=== PATIENT | female | born 2005 | race Caucasian/White ===

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

== ENCOUNTER 2023-05-16 14:01 | Emergency (ER) | payer BC, MEDICAID ==
[~2023-05-16] VITALS: Ht 165.1 cm; Wt 59.1 kg
[~2023-05-16 14:01] MED LIST: ADDE10CA3 PO; BENA25CA4 PO; LEXA1TAB2 PO
[2023-05-16 14:02] VITALS: TEMP 98.2
[2023-05-16] MEDS ORDERED: MIRT1TAB (14:23)
[2023-05-16] MEDS ORDERED: VENL75CA47 (14:23)
[2023-05-16] MEDS ORDERED: LEVOTAB10 (14:23)
[2023-05-16] MEDS ORDERED: TOPA1TAB PO (14:23)
[2023-05-16] MEDS ORDERED: CYCL-707 PO (17:22)
[2023-05-16 17:33] VITALS: BP 120/69; O2SAT 99
== END 2023-05-16 17:35 | disposition home or self-care (01) ==
LOC: M ED 14:01
DX: S46.812A Strain of other muscles, fascia and tendons at shoulder and upper arm level, left arm, initial encounter (principal); J45.909 Unspecified asthma, uncomplicated; F41.9 Anxiety disorder, unspecified; F32.A Depression, unspecified; R51.9 Headache, unspecified; F12.10 Cannabis abuse, uncomplicated; F10.10 Alcohol abuse, uncomplicated; Z91.010 Allergy to peanuts; Z79.811 Long term (current) use of aromatase inhibitors; Z79.899 Other long term (current) drug therapy; Y92.9 Unspecified place or not applicable; Y93.9 Activity, unspecified; Y99.9 Unspecified external cause status

== ENCOUNTER → 2023-06-01 | Outpatient (CLI) | payer BC, MEDICAID ==
[~2023-06-01] MED LIST changes: +CYCL-707 PO; +LEVOTAB10; +MIRT1TAB; +TOPA1TAB PO; +VENL75CA47
== END ==
LOC: M SOG 07:55
PROVIDERS: ATTEND Physician Assistant
DX: M25.511 Pain in right shoulder (principal); M25.512 Pain in left shoulder

== ENCOUNTER 2024-01-18 15:50 | Emergency (ER) | payer BC, MEDICAID, OTHER ==
[~2024-01-18] VITALS: Ht 165.1 cm; Wt 57.1 kg
[2024-01-18 15:53] VITALS: TEMP 97.9
[2024-01-18] MEDS ORDERED: VIIB10TA PO (16:01)
[2024-01-18 18:37] LABS: BASO # 0.1 10^3/uL (0.0-0.2); BASO % 0.8 % (0.0-1.0); EOS # 0.8 10^3/uL (0.0-0.5); EOS % 11.4 % (0.0-3.0); HEMATOCRIT 42.1 % (36.0-47.0); HEMOGLOBIN 14.3 g/dl (12.0-15.5); LYMPH # 2.2 10^3/uL (1.5-5.0); LYMPH % 29.1 % (24.0-44.0); MEAN CORPUSCULAR HEMOGLOBIN 30.2 pg (27.0-33.0); MEAN CORPUSCULAR VOLUME 88.8 fl (80.0-96.0); MONO # 0.6 10^3/uL (0.0-0.8); MONO % 8.3 % (2.0-8.0); NEUTROPHILS # 3.7 10^3/uL (1.5-8.5); NEUTROPHILS % 50.3 % (36.0-66.0); PLATELET COUNT, AUTOMATED 261 10^3/uL (150-450); RED BLOOD COUNT 4.74 10^6/uL (4.00-5.40); WHITE BLOOD COUNT 7.4 10^3/uL (4.0-10.0)
[2024-01-18 19:00] LABS: LIPASE 41 U/L (12-53)
[2024-01-18 19:01] LABS: AMYLASE 91 U/L (30-118)
[2024-01-18 19:06] LABS: ALKALINE PHOSPHATASE 56 U/L (46-116); ALT/SGPT 12 U/L (7.0-40); AST/SGOT < 8 U/L (<34); BILIRUBIN,DIRECT 0.2 MG/DL (<0.4); BILIRUBIN,TOTAL 0.6 MG/DL (0.3-1.2); BLOOD UREA NITROGEN 7 MG/DL (9-23); CALCIUM LEVEL 9.4 MG/DL (8.5-10.1); CARBON DIOXIDE LEVEL 24 MMOL/L (20-31); CHLORIDE LEVEL 111 MMOL/L (98-107); CREATININE FOR GFR 0.69 MG/DL (0.55-1.30); GLUCOSE, FASTING 112 MG/DL (60-100); POTASSIUM SERUM 3.9 MMOL/L (3.5-5.1); SODIUM LEVEL 139 MMOL/L (136-145); TOTAL PROTEIN 6.8 G/DL (5.7-8.2)
[2024-01-18 19:16] LABS: HCG, SERUM QUALITATIVE NEGATIVE (NEGATIVE)
[2024-01-18] MEDS: KETOROLAC 30 MG/ML 1ML VIAL IV ONE (19:24)
[2024-01-18 22:39] VITALS: BP 110/74; O2SAT 98
[2024-01-18] MEDS ORDERED: METH-1164 PO (23:54)
[2024-01-18] MEDS ORDERED: DICL75TA PO (23:54)
== END 2024-01-19 00:21 | disposition home or self-care (01) ==
LOC: M ED 15:50
DX: M54.50 Low back pain, unspecified (principal); M62.838 Other muscle spasm; J45.909 Unspecified asthma, uncomplicated; Z79.899 Other long term (current) drug therapy; Z91.018 Allergy to other foods
CPT/HCPCS: 70491; 74177; 80048; 80076; 81001; 82150; 83690; 84703; 85025; 96374; 99284; J1885

== ENCOUNTER → 2024-07-04 | Outpatient (CLI) | payer OTHER ==
[~2024-07-04] MED LIST changes: +DICL75TA PO; +METH-1164 PO; +VIIB10TA PO
[2024-07-04 14:04] LABS: BASO # 0.1 10^3/uL (0.0-0.2); BASO % 1.1 % (0.0-1.0); EOS % 15.1 % (0.0-3.0); HEMATOCRIT 43.3 % (36.0-47.0); HEMOGLOBIN 14.7 g/dl (12.0-15.5); LYMPH # 2.1 10^3/uL (1.5-5.0); LYMPH % 32.5 % (24.0-44.0); MEAN CORPUSCULAR HEMOGLOBIN 30.6 pg (27.0-33.0); MEAN CORPUSCULAR HGB CONC 33.9 g/dl (32.0-36.5); MONO # 0.5 10^3/uL (0.0-0.8); MONO % 7.6 % (2.0-8.0); NEUTROPHILS # 2.8 10^3/uL (1.5-8.5); NEUTROPHILS % 43.5 % (36.0-66.0); PLATELET COUNT, AUTOMATED 284 10^3/uL (150-450); RED BLOOD COUNT 4.81 10^6/uL (4.00-5.40); WHITE BLOOD COUNT 6.3 10^3/uL (4.0-10.0)
[2024-07-04 14:34] LABS: HEMOGLOBIN A1c 4.6 % (4.0-6.0)
[2024-07-04 14:55] LABS: THYROID STIMULATING HORMONE 0.744 uIU/ML (0.55-4.78)
[2024-07-04 14:56] LABS: FERRITIN 43.3 NG/ML (7.3-270.7); FOLLICLE STIMULATING HORMONE 7.4 mIU/ML; IRON (FE) 119 UG/DL (50-170); PERCENT SATURATION 43.3 % (13.2-45.0); TOTAL IRON BINDING CAPACITY 275 UG/DL (250-425)
[2024-07-04 14:57] LABS: ALBUMIN 4.1 G/DL (3.2-5.2); ALKALINE PHOSPHATASE 60 U/L (35-104); ALT/SGPT 11 U/L (7.0-40); AST/SGOT < 8 U/L (<34); BILIRUBIN,TOTAL 0.5 MG/DL (0.3-1.2); BLOOD UREA NITROGEN 6 MG/DL (9-23); CALCIUM LEVEL 9.4 MG/DL (8.5-10.1); CARBON DIOXIDE LEVEL 24 MMOL/L (20-31); CHLORIDE LEVEL 112 MMOL/L (98-107); CHOLESTEROL LEVEL 151 MG/DL (<200); CREATININE FOR GFR 0.73 MG/DL (0.55-1.30); GLOMERULAR FILTRATION RATE > 60.0 (>60); GLUCOSE, FASTING 80 MG/DL (60-100); HDL CHOLESTEROL 43.1 MG/DL (>40); LDL CHOLESTEROL 95.5 MG/DL (<100); LUTEINIZING HORMONE 2.7 mIU/ML; NON-HDL-C 107.9 MG/DL; POTASSIUM SERUM 4.6 MMOL/L (3.5-5.1); PROLACTIN 8.67 NG/ML; SODIUM LEVEL 143 MMOL/L (136-145); TOTAL PROTEIN 6.9 G/DL (5.7-8.2); TRIGLYCERIDES LEVEL 62 MG/DL (<150)
[2024-07-04 14:58] LABS: TESTOSTERONE 26 NG/DL (14-76)
[2024-07-04 14:59] LABS: FREE T4 1.15 NG/DL (0.89-1.76)
== END ==
LOC: M PLALAB 11:39
PROVIDERS: ATTEND Student in an Organized Health Care Education/Training Program
DX: Z00.00 Encounter for general adult medical examination without abnormal findings (principal); R10.2 Pelvic and perineal pain; R53.83 Other fatigue; Z13.29 Encounter for screening for other suspected endocrine disorder; Z13.1 Encounter for screening for diabetes mellitus; Z13.220 Encounter for screening for lipoid disorders; Z13.21 Encounter for screening for nutritional disorder